=== PATIENT | male | born 1965 | race Caucasian/White ===

== ENCOUNTER 2017-02-22 16:31 | Emergency (ER) | payer BC ==
[~2017-02-22] VITALS: Ht 180.3 cm; Wt 122.7 kg
[~2017-02-22 16:31] MED LIST: ALTACE1.25 M1 PO; ALTACE10 MG PO; ASPIRIN81 M1 PO; BAYER ASPIRIN325 MG PO; CRESTOR40 MG PO; LEXAPRO10 MG PO; Nitrostat,NitroQuick SL; PREVACID15 MG PO; PREVACID30 MG PO; VYTORIN 10-101 EACH PO
[2017-02-22 16:51] VITALS: BP 139/97
[2017-02-22] MEDS ORDERED: ERYTHROMYC1 APPLICAT RIGHT EYE (20:58)
[2017-02-22] MEDS ORDERED: PERCOCET 5/31 TABLET PO (20:58)
[2017-02-22] MEDS ORDERED: MOTRIN600 MG PO (20:58)
== END 2017-02-22 21:20 | disposition home or self-care (01) ==
LOC: RME 16:31 → EME 16:31 → RME 21:20
DX: S05.01XA Injury of conjunctiva and corneal abrasion without foreign body, right eye, initial encounter (principal); W22.8XXA Striking against or struck by other objects, initial encounter; I10 Essential (primary) hypertension; Z79.82 Long term (current) use of aspirin
CPT/HCPCS: 70480; 99281; 99284